=== PATIENT | male | born 1995 | race Caucasian/White ===

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

== ENCOUNTER 2017-03-05 22:02 | Emergency (ER) | payer MEDICAID ==
[~2017-03-05] VITALS: Ht 182.9 cm; Wt 67.1 kg
[2017-03-05 22:17] VITALS: BP 149/80
== END 2017-03-06 00:36 | disposition left against medical advice (07) ==
LOC: ER 22:10
DX: M25.512 Pain in left shoulder (principal); Z53.21 Procedure and treatment not carried out due to patient leaving prior to being seen by health care provider
CPT/HCPCS: 73030

== ENCOUNTER 2020-02-28 17:00 | Emergency (ER) | payer MEDICAID ==
[~2020-02-28] VITALS: Ht 182.9 cm; Wt 68.0 kg
[2020-02-28 20:44] VITALS: BP 133/87
== END 2020-02-28 20:56 | disposition home or self-care (01) ==
LOC: ER 17:00
DX: S01.01XA Laceration without foreign body of scalp, initial encounter (principal); W22.8XXA Striking against or struck by other objects, initial encounter; Y93.89 Activity, other specified; Y92.89 Other specified places as the place of occurrence of the external cause; Y99.8 Other external cause status
CPT/HCPCS: 12001

== ENCOUNTER 2022-12-05 12:51 | Emergency (ER) | payer MEDICAID ==
[2022-12-05] MEDS ORDERED: DICY10CA PO (22:52)
[2022-12-05] MEDS ORDERED: ZOFR4T PO (22:52)
[2022-12-05] MEDS ORDERED: FAMO20TA10 PO (22:52)
[2022-12-05] MEDS ORDERED: LOPE7.5C PO (22:52)
== END 2022-12-05 13:48 | disposition left against medical advice (07) ==
LOC: ER 12:51
DX: R10.9 Unspecified abdominal pain (principal); Z53.21 Procedure and treatment not carried out due to patient leaving prior to being seen by health care provider

== ENCOUNTER 2022-12-05 18:28 | Emergency (ER) | payer MEDICAID ==
[~2022-12-05] VITALS: Ht 182.9 cm; Wt 140.0 kg
[2022-12-05 20:04] LABS: Urine Bacteria NONE SEEN /hpf (None Seen); Urine Blood Negative /uL (Negative); Urine Mucus FEW (None Seen); Urine Specific Gravity 1.031 (1.001-1.035); Urine WBC <1 /hpf (0 - 3)
[2022-12-05 20:05] LABS: Basophils # (auto) 0 10 ^3/uL (0-0.2); Basophils % (auto) 0.3 % (0.0-2.0); Eosinophils # (auto) 0.1 10 ^3/uL (0-0.8); Eosinophils % (auto) 1.4 % (0.0-7.0); Hematocrit 41.3 % (41.0-53.0); Lymphocytes # (auto) 1.6 10 ^3/uL (0.4-5.4); Lymphocytes % (auto) 25.8 % (10.0-50.0); Mean Corpuscular Hemoglobin 30.2 pg (28.0-32.0); Mean Corpuscular Hgb Conc. 33.9 g/dL (32.0-36.0); Monocytes # (auto) 0.3 10 ^3/uL (0-1.3); Monocytes % (auto) 5.5 % (0.0-12.0); Neutrophils # (auto) 4.2 10 ^3/uL (1.6-8.6); Nucleated Red Blood Cells % 0.1 %; Red Blood Cells 4.65 10^6/uL (4.5-5.90); Red Cell Distribution Width 13.2 % (11.8-14.3); White Blood Cell 6.3 10^3/uL (4.4-10.8)
[2022-12-05 20:15] LABS: Albumin 4.4 g/dL (3.4-5.0); Calcium 9.7 mg/dL (8.5-10.1)
[2022-12-05 20:19] LABS: BUN/Creatinine Ratio 10.5 (10.0-20.0); Bilirubin, Total 0.9 mg/dL (0.2-1.0); Total Protein 7.7 g/dL (6.4-8.2)
[2022-12-05] MEDS ORDERED: MORPHINE SULFATE INJ 2 MG/ml SYRG IV ONE (22:15)
[2022-12-05] MEDS ORDERED: ONDANSETRON HCL 4 MG/2 ML VIAL IV ONE (22:15)
[2022-12-05] MEDS ORDERED: SODIUM CHLORIDE 0.9% 1,000 ML IV ONE (22:15)
[2022-12-05] MEDS ORDERED: PANTOPRAZOLE 40 MG/10 ML VIAL INJ IV ONE (22:15)
[2022-12-05] MEDS ORDERED: DICY10CA PO (22:52)
[2022-12-05] MEDS ORDERED: LOPE7.5C PO (22:52)
[2022-12-05] MEDS ORDERED: FAMO20TA10 PO (22:52)
[2022-12-05] MEDS ORDERED: ZOFR4T PO (22:52)
[2022-12-06 00:42] VITALS: BP 127/82; PULSE 54; RESP 18; TEMP 98.5; O2SAT 100
== END 2022-12-06 00:43 | disposition home or self-care (01) ==
LOC: ER 18:28
DX: R10.13 Epigastric pain (principal); R11.10 Vomiting, unspecified; R19.7 Diarrhea, unspecified; K29.70 Gastritis, unspecified, without bleeding; Z88.0 Allergy status to penicillin
CPT/HCPCS: 36415; 74176; 80053; 81001; 83690; 85025; 96361; 96374; 96375; 99285; C9113; J2405; J7030

== ENCOUNTER 2024-02-05 09:52 | Emergency (ER) | payer MEDICAID ==
[~2024-02-05] VITALS: Ht 182.9 cm; Wt 63.7 kg
[~2024-02-05 09:52] MED LIST: DICY10CA PO; FAMO20TA10 PO; LOPE7.5C PO; ZOFR4T PO
[2024-02-05 10:08] VITALS: BP 120/76; PULSE 71; RESP 16; O2SAT 97
== END 2024-02-05 12:01 | disposition left against medical advice (07) ==
LOC: ER 09:52
DX: M25.561 Pain in right knee (principal); Z53.21 Procedure and treatment not carried out due to patient leaving prior to being seen by health care provider